=== PATIENT | male | born 1960 | race African-American/Black ===

== ENCOUNTER 2017-07-25 07:57 | Emergency (ER) | payer OTHER ==
[2017-07-25 08:07] VITALS: BP 124/74
[2017-07-25] MEDS ORDERED: IBUPROFEN 800 MG TABLET PO ONE (08:30)
[2017-07-25] MEDS ORDERED: ACETAMINOPHEN 325 MG TABLET PO ONE (08:30)
--- NOTE | 2017-07-25 08:32 | ER Document Report ---
HPI - HPI Patient complains to provider of: Left neck and shoulder pain Onset: Other - July 01 Onset/Duration: Gradual, Persistent Pain Level: 5 Context: 56-year-old male woke up after sleeping without pillows July 01 when they were in [place] and developed pain in his left trapezius muscle. It hurt for a couple days and then it started to ease up but his noticed that he was still holding his neck funny and asked if it was still hurting. This was towards the end of June when it got more severe when he was at work at the present in behavioral. There is no radiculopathy. No history of cervical spine injury or arthrosis. Associated Symptoms: None Exacerbated by: Movement Relieved by: Other - Heat helps Similar symptoms previously: Yes Recently seen / treated by doctor: Yes - July 13 at [facility] - ROS ROS below otherwise negative: Yes Systems Reviewed and Negative: Yes All other systems reviewed and negative - REPRODUCTIVE Reproductive: DENIES: : Past Medical History - General Information source: Patient - Social History Smoking Status: Never Smoker Frequency of alcohol use: None Drug Abuse: None Lives with: Family Family History: Reviewed & Not Pertinent - Past Medical History Cardiac Medical History: Reports: Hx Hypercholesterolemia, Hx Hypertension - meds 1-3 yrs Pulmonary Medical History: Reports: Hx Sleep Apnea - doesnt use c pap as directed Renal/ Medical History: Reports: Hx Kidney Stones - passed multiple Psychiatric Medical History: Reports: Hx Post Traumatic Stress Disorder Traumatic Medical History: Reports: Hx Fractures - rt forearm,rt wrist,rt ribs, open fx rt leg,rt great toe Surgical Hx: Negative - Immunizations Hx Diphtheria, Pertussis, Tetanus Vaccination: Yes - tetanus Vertical Provider Document - CONSTITUTIONAL Agree With Documented VS: Yes Exam Limitations: No Limitations - INFECTION CONTROL TRAVEL OUTSIDE OF THE [place] IN LAST 30 DAYS: No - HEENT HEENT: Atraumatic, Normocephalic - NECK Neck: Supple. negative: Lymphadenopathy-Left, Lymphadenopathy-Right Notes: Tender left trapezius muscle top of shoulder and extending into his lateral left neck muscle - RESPIRATORY Respiratory: Breath Sounds Normal, No Respiratory Distress - CARDIOVASCULAR Cardiovascular: Regular Rate, Regular Rhythm - MUSCULOSKELETAL/EXTREMETIES Musculoskeletal/Extremeties: MAEW, Tender - See above - NEURO Level of Consciousness: Awake, Alert - DERM Integumentary: Warm, Dry, No Rash Course - Vital Signs Vital signs: Temp Pulse Resp BP Pulse Ox 97.8 F 70 16 124/74 97 07/25/17 08:03 07/25/17 08:03 07/25/17 08:03 07/25/17 08:03 07/25/17 08:03 Discharge - Discharge Clinical Impression: Left torticollis Condition: Good Disposition: HOME, SELF-CARE Instructions: Acetaminophen, Anti-Inflammatory Medication ([facility]), Muscle Relaxers ([facility]), Muscle Strain ([facility]), Torticollis ([facility]), Warm Packs ([facility]) Additional Instructions: angel range of motion as discussed warm compress motrin up to 800mg three times per day tylenol up to 4000 mg per day see your doctor for follow up if persists, may need imaging of your c spine especially if you get any numbness in left arm Prescriptions: Ibuprofen [Motrin 800 mg Tablet] 800 mg PO Q8HP PRN #30 tablet PRN Reason: Cyclobenzaprine HCl [Flexeril 10 Mg Tablet] 10 mg PO TIDP PRN #20 tablet PRN Reason:
== END 2017-07-25 08:50 | disposition home or self-care (01) ==
LOC: ER 07:57
DX: M43.6 Torticollis (principal); I10 Essential (primary) hypertension
CPT/HCPCS: 99283

== ENCOUNTER 2018-09-11 08:35 | Emergency (ER) | payer OTHER ==
[2018-09-11 08:43] VITALS: BP 181/101
[2018-09-11] MEDS ORDERED: ACETAMINOPHEN 325 MG TABLET PO ONE (09:31)
[2018-09-11] MEDS ORDERED: PREDNISONE 20 MG TABLET PO ONE (10:03)
--- NOTE | 2018-09-11 10:16 | ER Document Report ---
HPI - HPI Patient complains to provider of: heel pain Time Seen by Provider: 09/11/18 09:09 Onset: Other - 1 month Onset/Duration: Waxing and waning Quality of pain: Sharp Pain Level: 5 Context: Patient complains of left posterior heel pain off and on for the past month that worsened over the past few days. Patient denies any injury or fever. Patient states pain is worse whenever he plantar flexes. Associated Symptoms: Other - Left posterior heel pain Exacerbated by: Standing, Movement, Walking Relieved by: Denies Similar symptoms previously: No Recently seen / treated by doctor: No - ROS ROS below otherwise negative: Yes Systems Reviewed and Negative: Yes All other systems reviewed and negative - CONSTITUTIONAL Constitutional: DENIES: Fever, Chills - NEURO Neurology: DENIES: Weakness - MUSCULOSKELETAL Musculoskeletal: REPORTS: Extremity pain - left heel - DERM Skin Color: Normal Skin Problems: None Past Medical History - General Information source: Patient - Social History Smoking Status: Never Smoker Frequency of alcohol use: Social Drug Abuse: None Occupation: [employer] Lives with: Family Family History: Reviewed & Not Pertinent Patient has suicidal ideation: No Patient has homicidal ideation: No - Past Medical History Cardiac Medical History: Reports: Hx Hypercholesterolemia, Hx Hypertension - meds 1-3 yrs Pulmonary Medical History: Reports: Hx Sleep Apnea - doesnt use c pap as directed Renal/ Medical History: Reports: Hx Kidney Stones - passed multiple Malignancy Medical History: Denies Hx Lung Cancer Musculoskeletal Medical History: Reports Hx Gout Psychiatric Medical History: Reports: Hx Post Traumatic Stress Disorder Traumatic Medical History: Reports: Hx Fractures - rt forearm,rt wrist,rt ri bs,open fx rt leg,rt great toe Past Surgical History: Reports: Hx Orthopedic Surgery - Immunizations Hx Diphtheria, Pertussis, Tetanus Vaccination: Yes - tetanus Vertical Provider Document - CONSTITUTIONAL Agree With Documented VS: Yes Exam Limitations: No Limitations General Appearance: WD/WN, No Apparent Distress - INFECTION CONTROL TRAVEL OUTSIDE OF THE [place] IN LAST 30 DAYS: No - HEENT HEENT: Atraumatic, Normocephalic - NECK Neck: Normal Inspection - RESPIRATORY Respiratory: No Respiratory Distress - CARDIOVASCULAR Pulses: Normal: Dorsalis pedis - MUSCULOSKELETAL/EXTREMETIES Musculoskeletal/Extremeties: MAEW, FROM, Tender - Tenderness to posterior aspect of left calcaneus, No Edema. negative: Eccymosis Notes: No erythema, no overt swelling at this time - NEURO Level of Consciousness: Awake, Alert, Appropriate Motor/Sensory: No Motor Deficit - DERM Integumentary: Warm, Dry, No Rash Course - Re-evaluation Re-evalutation: 09/11/18 10:00 Patient with very large heel spur to the left foot. Will recommend supportive shoes and outpatient follow-up with his manager reporting for further evaluation. We will manage symptomatically at this time. No concern for septic arthritis or gout at this time. - Vital Signs Vital signs: Temp Pulse Resp BP Pulse Ox 98.1 F 86 18 181/101 H 96 09/11/18 08:41 09/11/18 08:41 09/11/18 08:41 09/11/18 08:41 09/11/18 08:41 - Diagnostic Test Radiology reviewed: Pending, Image reviewed Discharge - Discharge Clinical Impression: Heel spur Qualifiers: Laterality: left Qualified Code(s): M77.32 - Calcaneal spur, left foot Condition: Stable Disposition: HOME, SELF-CARE Instructions: Plantar Fasciitis or Heel Spur ([facility]), Steroid Medication Additional Instructions: Return immediately for any new or worsening symptoms Followup with your primary care provider, call tomorrow to make a followup appointment Wear good supportive shoes Follow-up with podiatry Prescriptions: Prednisone [Deltasone 20 mg Tablet] 2 tab PO DAILY 5 Days tablet Referrals: ARMINDA ZHAO MD [Primary Care Provider] - Follow up as needed LEROY ARGUETA DPM [ACTIVE STAFF] - Follow up as needed IVAN WHITEHEAD DPM [ACTIVE STAFF] - Follow up as needed
--- NOTE | 2018-09-11 10:18 | RADIOLOGY REPORT (SQ) ---
EXAM DESCRIPTION: OS CALCIS/HEEL LEFT COMPLETED DATE/TIME: 09/11/2018 9:57 am REASON FOR STUDY: left heel pain COMPARISON: None. NUMBER OF VIEWS: Two views. TECHNIQUE: Plantar and lateral images acquired of the left calcaneous. LIMITATIONS: None. FINDINGS: MINERALIZATION: Normal. BONES: No acute fracture or dislocation. No worrisome bone lesions. JOINTS: Intact. SOFT TISSUES: No soft tissue swelling. No foreign body. OTHER: Superior and plantar calcaneal spurs. IMPRESSION: NO RADIOGRAPHIC EVIDENCE OF ACUTE INJURY. TECHNICAL DOCUMENTATION: JOB ID: [id number] [employer]- All Rights Reserved Reading location - IP/workstation name: [email or web address]
== END 2018-09-11 10:24 | disposition home or self-care (01) ==
LOC: ER 08:35
DX: M77.32 Calcaneal spur, left foot (principal); M79.672 Pain in left foot; E78.00 Pure hypercholesterolemia, unspecified; I10 Essential (primary) hypertension; Z87.442 Personal history of urinary calculi
CPT/HCPCS: 99283; 73650; J7512

== ENCOUNTER 2019-04-24 13:34 | Emergency (ER) | payer OTHER ==
[2019-04-24 13:41] VITALS: BP 156/87
[2019-04-24] MEDS ORDERED: PREDNISONE 20 MG TABLET PO ONE (14:17)
--- NOTE | 2019-04-24 14:22 | ER Document Report ---
HPI - HPI Patient complains to provider of: left knee pain Time Seen by Provider: 04/24/19 14:01 Onset: Yesterday Onset/Duration: Worse Quality of pain: Sharp Pain Level: 5 Context: Patient presents complaining of left knee joint pain. Patient states pain started yesterday and is gradually worsened. Patient complains of pain with ambulation. Patient denies any injury. Patient denies any fever. Patient does have a known history of gout and states that he has had a previous MCL repair on the left knee. Patient states that he did speak with the orthopedic in the past about possible joint replacement but they decided against this as he was too active and too young at that time. Patient complains of the left medial knee and popliteal knee pain. Associated Symptoms: Other - left knee Exacerbated by: Standing, Movement, Walking Relieved by: Denies Similar symptoms previously: No Recently seen / treated by doctor: No - ROS ROS below otherwise negative: Yes Systems Reviewed and Negative: Yes All other systems reviewed and negative - CONSTITUTIONAL Constitutional: DENIES: Fever, Chills - NEURO Neurology: DENIES: Weakness - GASTROINTESTINAL Gastrointestinal: DENIES: Nausea - MUSCULOSKELETAL Musculoskeletal: REPORTS: Extremity pain - DERM Skin Color: Normal Skin Problems: None Past Medical History - General Information source: Patient - Social History Smoking Status: Never Smoker Frequency of alcohol use: None Drug Abuse: None Occupation: tile applicator Lives with: Family Family History: Reviewed & Not Pertinent Patient has suicidal ideation: No Patient has homicidal ideation: No - Past Medical History Cardiac Medical History: Reports: Hx Hypercholesterolemia, Hx Hypertension - meds 1-3 yrs Pulmonary Medical History: Reports: Hx Sleep Apnea - doesnt use c pap as directed Neurological Medical History: Denies: Hx Cerebrovascular Accident, Hx Seizures Renal/ Medical History: Reports: Hx Kidney Stones - passed multiple Malignancy Medical History: Denies Hx Lung Cancer Musculoskeletal Medical History: Reports Hx Gout Psychiatric Medical History: Reports: Hx Post Traumatic Stress Disorder Traumatic Medical History: Reports: Hx Fractures - rt forearm,rt wrist,rt ribs,open fx rt leg,rt great toe Past Surgical History: Reports: Hx Orthopedic Surgery - Immunizations Hx Diphtheria, Pertussis, Tetanus Vaccination: Yes - tetanus Vertical Provider Document - CONSTITUTIONAL Agree With Documented VS: Yes Exam Limitations: No Limitations General Appearance: WD/WN, No Apparent Distress - INFECTION CONTROL TRAVEL OUTSIDE OF THE [place] IN LAST 30 DAYS: No - HEENT HEENT: Atraumatic, Normocephalic - NECK Neck: Normal Inspection, Supple - RESPIRATORY Respiratory: Breath Sounds Normal, No Respiratory Distress - CARDIOVASCULAR Cardiovascular: Regular Rate, Regular Rhythm Pulses: Normal: Posterior tibial - MUSCULOSKELETAL/EXTREMETIES Musculoskeletal/Extremeties: MAEW, Tender - Left knee joint tenderness to medial and posterior compartments, no effusion, no laxity with varus or valgus maneuvers. Negative anterior drawer test. Patellar tendon intact. No calor - NEURO Level of Consciousness: Awake, Alert, Appropriate Motor/Sensory: No Motor Deficit - DERM Integumentary: Warm, Dry, No Rash Course - Re-evaluation Re-evalutation: 04/24/19 14:18 Patient with left knee joint tenderness, no symptoms worrisome for epic arthritis. Patient does have a history of gout, discussed with patient the possibility of early presentation of gout affecting the left knee joint. Patient also has a history of previous meniscal injury and was counseled regarding possible joint replacement in the past. Suspect early gout versus flareup of arthritis at this time. Good return precautions discussed with patient. - Vital Signs Vital signs: Temp Pulse Resp BP Pulse Ox 98.0 F 88 18 156/87 H 96 04/24/19 13:39 04/24/19 13:39 04/24/19 13:39 04/24/19 13:39 04/24/19 13:39 Procedures - Immobilization Left Knee Pre-Proc Neuro Vasc Exam: Normal Immobilizer type: Cy wrap Performed by: PCT Post-Proc Neuro Vasc Exam: Normal Alignment checked and good: Yes Discharge - Discharge Clinical Impression: Left knee pain Qualifiers: Chronicity: unspecified Qualified Code(s): M25.562 - Pain in left knee Condition: Stable Disposition: HOME, SELF-CARE Instructions: Arthritis ([facility]), Use of Crutches ([facility]), Gout ([facility]), Gout Diet ([facility]), Steroid Medication Additional Instructions: Return immediately for any new or worsening symptoms Followup with your primary care provider, call tomorrow to make a followup appointment Weightbearing as tolerated Follow-up with your orthopedic surgeon for recheck Prescriptions: Prednisone [Deltasone 20 mg Tablet] 2 tab PO DAILY 4 Days tablet Diclofenac Sodium 4 gm TP QID PRN #100 gel..gram. PRN Reason: Hydrocodone/Acetaminophen [Kimball 5-325 mg Tablet] 1 tab PO Q6 PRN #10 tablet PRN Reason: Forms: Return to Work Referrals: ARMINDA ZHAO MD [Primary Care Provider] - Follow up as needed
== END 2019-04-24 14:33 | disposition home or self-care (01) ==
LOC: ER 13:34
DX: M25.562 Pain in left knee (principal); I10 Essential (primary) hypertension; Z98.890 Other specified postprocedural states; Z87.39 Personal history of other diseases of the musculoskeletal system and connective tissue
CPT/HCPCS: 99283; J7512

== ENCOUNTER 2019-10-27 08:17 | Emergency (ER) | payer OTHER ==
[2019-10-27] MEDS ORDERED: ACETAMINOPHEN 325 MG TABLET PO ONE ×2 (09:45→09:47)
--- NOTE | 2019-10-27 10:03 | ER Document Report ---
ED General - General Chief Complaint: Fever Stated Complaint: FEVER,HEADACHE,DIARRHEA Time Seen by Provider: 10/27/19 09:34 Primary Care Provider: ARMINDA ZHAO MD [Primary Care Provider] - Follow up as needed Mode of Arrival: Ambulatory Information source: Patient Notes: This 59-year-old male presents to the emergency department with a history of feeling poorly with associated fever, body aches and pains, with fatigue and feeling poor. He was seen at [facility] in [place] on October 17 and a coronavirus test was performed. He had not received the results of the testing. 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 TRAVEL OUTSIDE OF THE U[place] IN LAST 30 DAYS: No - Related Data Allergies/Adverse Reactions: No Known Allergies Allergy (Verified 10/27/19 11:44) Past Medical History - General Information source: Patient - Social History Smoking Status: Unknown if Ever Smoked Family History: Reviewed & Not Pertinent - Past Medical History Cardiac Medical History: Reports: Hx Hypercholesterolemia, Hx Hypertension - meds 1-3 yrs Denies: Hx Atrial Fibrillation, Hx Congestive Heart Failure, Hx Coronary Artery Disease, Hx Heart Attack, Hx Peripheral Vascular Disease, Hx Pulmonary Embolism, Hx Heart Murmur Pulmonary Medical History: Reports: Hx Sleep Apnea - doesnt use c pap as directed Denies: Hx Asthma, Hx Bronchitis, Hx COPD, Hx Pneumonia, Hx Respiratory Failure, Hx Tuberculosis Neurological Medical History: Denies: Hx Cerebrovascular Accident, Hx Seizures Renal/ Medical History: Reports: Hx Kidney Stones - passed multiple. Denies: Hx Benign Prostatic Hyperplasia, Hx End Stage Renal Disease, Hx Peritoneal Dialysis Malignancy Medical History: Denies Hx Lung Cancer Musculoskeletal Medical History: Denies Hx Arthritis, Denies Hx Fibromyalgia, Reports Hx Gout, Denies Hx Muscular Dystrophy Psychiatric Medical History: Reports: Hx Post Traumatic Stress Disorder Denies: Hx Bipolar Disorder, Hx Depression, Hx Schizophrenia Traumatic Medical History: Reports: Hx Fractures - rt forearm,rt wrist,rt ribs,open fx rt leg,rt great toe Past Surgical History: Reports: Hx Orthopedic Surgery. Denies: Hx Appendectomy, Hx Bowel Surgery, Hx Cholecystectomy, Hx Coronary Artery Bypass Graft, Hx Gastric Bypass Surgery, Hx Herniorrhaphy, Hx Pacemaker, Hx Tonsillectomy - Immunizations Hx Diphtheria, Pertussis, Tetanus Vaccination: Yes - tetanus Review of Systems - Review of Systems Notes: Constitutional:+fever. HENT: Negative for sore throat. Eyes: Negative for visual changes. Cardiovascular: Negative for chest pain. Respiratory:+ shortness of breath. Gastrointestinal:+ diarrhea. Genitourinary: Negative for dysuria. Musculoskeletal: + Myalgia Skin: Negative for rash. Neurological: + headaches 10 point ROS negative except as marked above and in HPI. Physical Exam - Vital signs Vitals: Temp Pulse Resp BP Pulse Ox 102.8 F H 83 20 161/72 H 94 10/27/19 08:22 10/27/19 08:22 10/27/19 08:22 10/27/19 08:22 10/27/19 08:22 - Notes Notes: PHYSICAL EXAMINATION: Physical Exam: General: Well-nourished well-developed 59-year-old man in no acute distress HEENT: NC/AT, pupils equal round and reactive to light, MM moist,nares clear, oropharynx clear, airway patent Neck: supple, no adenopathy, no masses. Good range of motion Lungs: clear, no wheezing, no rales no rhonchi CVS: Regular rate and rhythm no murmur gallop or rub Abdomen: Soft, active, nontender, no masses, no hepatosplenomegaly Ext: No edema, clubbing or cyanosis. Neuro: Alert and responsive, moving all 4 extremities on command, cranial nerves intact, no focal findings Skin: Intact no open lesions, no rash PSYCH: Normal mood, normal affect. Course - Re-evaluation Re-evalutation: 10/27/19 12:30 Contacted the [facility] in [place], the patient's coronavirus test from October 18, 2019 is negative. Patient has developed symptoms suggestive of the disease with a good story for exposure. X-ray reveals bibasilar patchy opacities, white blood cell count is normal as well as the CMP. I have explained to the patient that he is unlikely candidate for the COVID 19 infection. He is being discharged with antibiotics, vitamin D, zinc, and instructions to self quarantine. He may return to the emergency department if his symptoms are worsening or if there are other concerns. The patient acknowledges understanding of this plan and is in agreement. - Vital Signs Vital signs: Temp Pulse Resp BP Pulse Ox 99.8 F 64 18 135/74 H 99 10/27/19 13:14 10/27/19 13:14 10/27/19 13:14 10/27/19 13:14 10/27/19 13:14 - Laboratory Result Diagrams: 10/27/19 10:15 10/27/19 10:15 Laboratory results interpreted by me: 10/27/19 10/27/19 10:15 10:15 RDW 15.3 H Plt Count 135 L Sodium 133.4 L Chloride 92 L Glucose 123 H - Diagnostic Test Radiology reviewed: Image reviewed, Reports reviewed Radiology results interpreted by me: 10/27/19 12:32 Chest x-ray: Patchy bibasilar opacities. Discharge - Discharge Clinical Impression: Suspected 2019 novel coronavirus infection, Abnormal chest x-ray Pneumonia Qualifiers: Pneumonia type: due to unspecified organism Laterality: bilateral Condition: Good Disposition: HOME, SELF-CARE Instructions: Fever ([facility]) Additional Instructions: You were seen with fever and upper respiratory symptoms, cough and body aches and pains. Chest x-ray reveals small bilateral patchy opacities, possible early pneumonia. Given the pandemic and coronavirus concerns, your were made a person of interest and a swab was collected and will be sent for COVID-19 evaluation. You will need to self quarantine until you get the results. You are given prescriptions for antibiotics, cefdinir and Zithromax, also given prescription for vitamin D, zinc and Robitussin can be used for cough control. You may use Tylenol 650 mg every 6 hours, ibuprofen 800 mg every 8 hours as needed for aches and pains, fever control. If your symptoms are worsening or if you have other concerns you may return to the emergency department for further evaluation and treatment HOME CARE INSTRUCTIONS & INFORMATION: Thank you for choosing us for your medical needs. We hope you're satisfied with the care you received. After you leave, you must properly care for your problem and, at the same time, observe its progress. Any condition can change. Some illnesses can change rapidly over hours or days. If your condition worsens, return to the Emergency Department or see your physician promptly. ABOUT YOUR X-RAYS AND EKG'S: If you had an EKG or X-rays taken, they have been read by the Emergency Physician. The X-rays and EKG's will also be read by a Radiologist or Evaluator within 24 hours. If discrepancies are noted, you will be notified by telephone. Please be certain the ED has a correct telephone number & address where you can be reached. Also, realize that some fractures or abnormalities do not show up on initial X-rays. If your symptoms continue, see your physician. ABOUT YOUR LABORATORY TEST: If you had laboratory tests, the results have been reviewed by the Emergency Physician. Some test results (for example cultures) may not be available for several days. You will be contacted if any test result shows you need additional treatment. Please be certain the ED has a correct telephone number and address where you can be reached. ABOUT YOUR MEDICATIONS: You will receive instructions on how to take your me dicine on the prescription label you receive. Additional information may be provided by the Pharmacy. If you have questions afterwards, call the ED for clarification or further instructions. Some prescribed medications may cause drowsiness. Do not perform tasks such as driving a car or operating machinery without consulting your Pharmacist. If you feel you need a refill of pain medication, your condition will need re-evaluation. Please do not call for a refill of any medication. ABOUT YOUR SIGNATURE: Signature of this document acknowledges to followin. Understanding that you received emergency treatment and that you may be released before al medical problems are known or treated. Please be certain the ED has a correct phone number & address where you can be reached. 2. Acknowledgement that you will arrange for follow-up care as recommended. 3. Authorization for the Emergency Physician to provide information to your follow-up Physician in order to maximize your care. AT ANY TIME, IF YOUR SYMPTOMS CHANGE SIGNIFICANTLY OR WORSEN OR YOU DEVELOP NEW SYMPTOMS, RETURN TO THE EMERGENCY DEPARTMENT IMMEDIATELY FOR RE-EVALUATION. OUR GOAL IS TO PROVIDE EXCELLENT MEDICAL CARE! WE HOPE THAT WE HAVE MET YOUR EXPECTATIONS DURING YOUR EMERGENCY DEPARTMENT VISIT AND THAT YOU FEEL YOU HAVE RECEIVED EXCELLENT CARE! Prescriptions: Cefdinir 300 mg PO BID #20 capsule Cholecalciferol (Vitamin D3) [Vitamin D3] 75 mcg PO DAILY #30 tablet Zinc [Zinc Chelated] 50 mg PO DAILY #60 tablet Azithromycin [Zithromax 250 mg Tablet] 250 mg PO ASDIR PRN #6 tablet PRN Reason: Referrals: ARMINDA ZHAO MD [Primary Care Provider] - Follow up as needed
--- NOTE | 2019-10-27 10:39 | RADIOLOGY REPORT (SQ) ---
EXAM DESCRIPTION: CHEST SINGLE VIEW IMAGES COMPLETED DATE/TIME: 10/27/2019 10:29 am REASON FOR STUDY: Cough/shortness of breath COMPARISON: PA and lateral views of the chest from 11/12/2011. EXAM PARAMETERS: NUMBER OF VIEWS: One view. TECHNIQUE: An AP view of the chest was obtained. RADIATION DOSE: NA LIMITATIONS: None. FINDINGS: LUNGS AND PLEURA: Patchy bibasilar opacities. There is no sizable pleural effusion or pne umothorax. MEDIASTINUM AND HILAR STRUCTURES: No mediastinal or hilar contour abnormality. HEART AND VASCULAR STRUCTURES: The cardiac silhouette and pulmonary vasculature are within normal garza its. BONES: No acute findings. HARDWARE: None in the chest. OTHER: No other finding. IMPRESSION: Patchy bibasilar opacities that could represent atelectasis or pneumonia. TECHNICAL DOCUMENTATION: JOB ID: [id number] 2010 [employer]- All Rights Reserved Reading location - IP/workstation name: [email or web address]
[2019-10-27 10:53] LABS: ALBUMIN 4.4 g/dL (3.5-5.0); ALKALINE PHOSPHATASE 73 U/L (38-126); ANION GAP 11 (5-19); ASPARTATE AMINO TRANSFERASE 36 U/L (17-59); BILIRUBIN,TOTAL 0.5 mg/dL (0.2-1.3); BLOOD UREA NITROGEN 14 mg/dL (7-20); CALCIUM 8.7 mg/dL (8.4-10.2); CARBON DIOXIDE 30 mmol/L (22-30); CHLORIDE 92 mmol/L (98-107); GLUCOSE 123 mg/dL (75-110); POTASSIUM 3.8 mmol/L (3.6-5.0)
[2019-10-27 11:07] LABS: ABSOLUTE LYMPHOCYTES (AUTO) 1.1 10^3/uL (0.5-4.7); ABSOLUTE MONOCYTES (AUTO) 0.5 10^3/uL (0.1-1.4); ABSOLUTE NEUT (AUTO) 3.2 10^3/uL (1.7-8.2); BASOPHILS % (AUTO) 0.3 % (0-2); HEMATOCRIT 43.4 % (37.9-51.0); HEMOGLOBIN 14.6 g/dL (13.5-17.0); MEAN CORPUSCULAR HEMOGLOBIN 28.3 pg (27.0-33.4); MEAN CORPUSCULAR HGB CONC 33.6 g/dL (32.0-36.0); MEAN CORPUSCULAR VOLUME 84 fl (80-97); MONOCYTES % (AUTO) 10.5 % (3-13); PLATELET COUNT 135 10^3/uL (150-450); RED BLOOD COUNT 5.15 10^6/uL (4.35-5.55); RED CELL DISTRIBUTION WIDTH 15.3 % (11.5-14.0); SEGMENTED NEUTROPHILS % (AUTO) 66.2 % (42-78); TOTAL CELLS COUNTED % (AUTO) 100 %; WHITE BLOOD COUNT 4.8 10^3/uL (4.0-10.5)
[2019-10-27 13:22] VITALS: BP 135/74
== END 2019-10-27 13:20 | disposition home or self-care (01) ==
LOC: ER 08:17
DX: U07.1 COVID-19 (principal); J18.9 Pneumonia, unspecified organism; R50.9 Fever, unspecified; R51 Headache; R19.7 Diarrhea, unspecified; M79.10 Myalgia, unspecified site; R53.83 Other fatigue; I10 Essential (primary) hypertension; Z79.899 Other long term (current) drug therapy
CPT/HCPCS: 99284; 36415; 85025; 87635; 80053; 71045; C9803

== ENCOUNTER → 2020-01-01 | Outpatient (CLI) | payer OTHER ==
[2020-01-01 11:11] LABS: ABSOLUTE EOSINOPHILS # (AUTO) 0.1 10^3/uL (0.0-0.6); ABSOLUTE LYMPHOCYTES (AUTO) 1.9 10^3/uL (0.5-4.7); ABSOLUTE MONOCYTES (AUTO) 0.5 10^3/uL (0.1-1.4); ABSOLUTE NEUT (AUTO) 4.2 10^3/uL (1.7-8.2); BASOPHILS % (AUTO) 0.4 % (0-2); EOSINOPHILS % (AUTO) 0.8 % (0-6); HEMATOCRIT 40.4 % (37.9-51.0); HEMOGLOBIN 13.6 g/dL (13.5-17.0); LYMPHOCYTES % (AUTO) 28.1 % (13-45); MEAN CORPUSCULAR HEMOGLOBIN 28.4 pg (27.0-33.4); MEAN CORPUSCULAR HGB CONC 33.5 g/dL (32.0-36.0); MEAN CORPUSCULAR VOLUME 85 fl (80-97); MONOCYTES % (AUTO) 7.6 % (3-13); PLATELET COUNT 184 10^3/uL (150-450); RED BLOOD COUNT 4.77 10^6/uL (4.35-5.55); RED CELL DISTRIBUTION WIDTH 15.9 % (11.5-14.0); SEGMENTED NEUTROPHILS % (AUTO) 63.1 % (42-78); TOTAL CELLS COUNTED % (AUTO) 100 %; WHITE BLOOD COUNT 6.7 10^3/uL (4.0-10.5)
[2020-01-01 11:32] LABS: ANION GAP 9 (5-19); BLOOD UREA NITROGEN 19 mg/dL (7-20); CALCIUM 8.9 mg/dL (8.4-10.2); CARBON DIOXIDE 29 mmol/L (22-30); CHLORIDE 101 mmol/L (98-107); GLUCOSE 116 mg/dL (75-110); POTASSIUM 3.9 mmol/L (3.6-5.0)
--- NOTE | 2020-01-01 12:13 | RADIOLOGY REPORT (SQ) ---
EXAM DESCRIPTION: CHEST PA/LATERAL IMAGES COMPLETED DATE/TIME: 01/01/2020 10:45 am REASON FOR STUDY: PRE-OP COMPARISON: None. EXAM PARAMETERS: NUMBER OF VIEWS: two views TECHNIQUE: Digital Frontal and Lateral radiographic views of the chest acquired. RADIATION DOSE: NA LIMITATIONS: none FINDINGS: LUNGS AND PLEURA: No opacities, masses or pneumothorax. No pleural effusion. MEDIASTINUM AND HILAR STRUCTURES: No masses or contour abnormalities. HEART AND VASCULAR STRUCTURES: Heart normal size. No evidence for failure. BONES: No acute findings. HARDWARE: None in the chest. OTHER: No other significant finding. IMPRESSION: NO SIGNIFICANT RADIOGRAPHIC FINDING IN THE CHEST. TECHNICAL DOCUMENTATION: JOB ID: [id number] 2010 [employer]- All Rights Reserved Reading location - IP/workstation name: [email or web address]
--- NOTE | 2020-01-01 21:44 | EKG REPORT ---
SEVERITY:- NORMAL ECG - SINUS RHYTHM : Confirmed by: Orquidea Hobbs 01-Jan-2020 21:44:03
== END ==
LOC: OD 10:05
PROVIDERS: ATTEND Orthopaedic Surgery
DX: Z01.812 Encounter for preprocedural laboratory examination (principal); Z01.810 Encounter for preprocedural cardiovascular examination; Z01.811 Encounter for preprocedural respiratory examination; M25.512 Pain in left shoulder; G47.30 Sleep apnea, unspecified; I10 Essential (primary) hypertension; E11.9 Type 2 diabetes mellitus without complications
CPT/HCPCS: 36415; 71046; 80048; 85025; 93005; 93010